=== PATIENT | female | born 1995 | race Two or more races ===

== ENCOUNTER 2024-04-30 05:37 | Inpatient (IN) | payer MEDICAID, OTHER ==
[~2024-04-30] VITALS: Ht 165.1 cm; Wt 63.5 kg
[2024-04-30] MEDS: HALOPERIDOL LACTATE 5 MG/ML INJ VIAL IM ONE (06:22)
[2024-04-30] MEDS: LORazepam 2MG/ML-1ML VIAL ONE (06:22)
[2024-04-30] MEDS: LORazepam 2MG/ML-1ML VIAL IM ONE (06:22)
[2024-04-30] MEDS: diphenhdrAMINE HCL 50 MG/1 ML VL IM ONE (06:22)
[2024-04-30] MEDS: HALOPERIDOL LACTATE 5 MG/ML INJ VIAL ONE (06:22)
[2024-04-30] MEDS: diphenhdrAMINE HCL 50 MG/1 ML VL ONE (06:22)
[2024-04-30 07:20] VITALS: PULSE 118; RESP 17; O2SAT 98
[2024-04-30] MEDS: SODIUM CHLORIDE 0.9% 1,000 ML IV ONE ×2 (07:35→10:11)
[2024-04-30 09:08] LABS: Urine Bacteria FEW /hpf (None Seen); Urine Blood Negative /uL (Negative); Urine Clarity Clear (Clear); Urine Color Colorless (Yellow); Urine Protein, UAD Negative (Negative); Urine Specific Gravity 1.004 (1.001-1.035); Urine Urobilinogen Normal (Negative); Urine WBC <1 /hpf (0 - 5)
[2024-04-30 09:12] LABS: Amphetamine Screen, Urine Neg (NEGATIVE); Barbiturate Scree,Urine Neg (NEGATIVE); Benzodiazephine Screen, Urine Neg (NEGATIVE); Cocaine Screen, Urine Neg (NEGATIVE)
[2024-04-30 09:13] LABS: Cannabinoid Screen, Urine Pos (NEGATIVE); Opiate Scree,Urine Neg (NEGATIVE); Phencyclidine Screen, Urine Neg (NEGATIVE)
[2024-04-30 09:49] LABS: Basophils # (auto) 0 10 ^3/uL (0-0.2); Basophils % (auto) 0.2 % (0.0-2.0); Eosinophils # (auto) 0.1 10 ^3/uL (0-0.8); Eosinophils % (auto) 1.5 % (0.0-7.0); Hematocrit 36.7 % (36.0-46.0); Hemoglobin 12.3 g/dL (12.2-16.2); Lymphocytes % (auto) 54.4 % (10.0-50.0); Mean Corpuscular Hemoglobin 32.4 pg (28.0-32.0); Mean Corpuscular Hgb Conc. 33.5 g/dL (32.0-36.0); Mean Corpuscular Volume 96.7 fL (80.0-100.0); Monocytes # (auto) 0.4 10 ^3/uL (0-1.3); Monocytes % (auto) 5.9 % (0.0-12.0); Neutrophils # (auto) 2.8 10 ^3/uL (1.6-8.6); Nucleated Red Blood Cells % 0.1 %; Platelet Count (auto) 248 10^3/uL (140-450); Red Blood Cells 3.79 10^6/uL (4.0-5.20); Red Cell Distribution Width 13.7 % (11.8-14.3); White Blood Cell 7.3 10^3/uL (4.4-10.8)
[2024-04-30 09:57] LABS: Anion Gap 8 (5-15); Carbon Dioxide 21 mmol/L (20-30); Chloride 116 mmol/L (98-107); Potassium 4.1 mmol/L (3.5-5.1); Sodium 145 mmol/L (136-145)
[2024-04-30 09:58] LABS: Calcium 7.8 mg/dL (8.7-10.4)
[2024-04-30 10:03] LABS: BUN/Creatinine Ratio 11.1 (10.0-20.0); Blood Urea Nitrogen 7 mg/dL (9-23); Glucose 98 mg/dL (74-106)
[2024-04-30 10:12] LABS: Blood Alcohol 290.9 mg/dL (<10)
[2024-04-30] MEDS ORDERED: ACETAMINOPHEN 325 MG TAB PO PRN (14:00)
[2024-04-30] MEDS ORDERED: HYDROcodone-ACET 5/325MG TAB PO PRN (14:00)
[2024-04-30] MEDS ORDERED: ONDANSETRON HCL 4 MG/2 ML VIAL IV PRN (14:00)
[2024-04-30] MEDS ORDERED: DOCUSATE SOD 100 MG CAP PO PRN (14:00)
[2024-04-30] MEDS: SODIUM CHLORIDE 0.9% 1,000 ML IV SCH (14:31)
[2024-04-30] MEDS ORDERED: MORPHINE SULFATE INJ 2 MG/ml SYRG IV PRN (15:00)
[2024-04-30] MEDS ORDERED: NITROGLYCERIN 0.4 MG SL TAB SL PRN (15:00)
[2024-04-30] MEDS ORDERED: LORazepam 2MG/ML-1ML VIAL IV PRN (16:15)
[2024-04-30] MEDS: CALCIUM GLUC 1,000mg/50ml-NS 50 ML IV ONE (16:48)
[2024-04-30] MEDS: FOLIC ACID 1 MG, MAGNESIUM SULF SDV 50% 8 MEQ, MULTIPLE VITAMIN 10 ML, THIAMINE INJ 100... INJ ONE (18:01)
[2024-04-30 19:30] VITALS: PULSE 82; RESP 17; O2SAT 97
[2024-04-30 19:55] VITALS: BP 106/67; PULSE 90; RESP 11; TEMP 97.7; O2SAT 97
[2024-05-01] MEDS ORDERED: THIAMINE 100mg/ml INJ (200mg/2ml VIAL) IV SCH (10:00)
[2024-05-01] MEDS ORDERED: MULTIPLE VITAMIN TAB PO SCH (10:00)
[2024-05-01] MEDS ORDERED: FOLIC ACID 1 MG in D5W 5% 50 ML INJ SCH (10:00)
== END 2024-05-01 19:55 | disposition left against medical advice (07) | DRG 816 ==
LOC: EDBD 05:37 → ER 05:56 → TELE 14:58
PROVIDERS: ADMIT Nurse Practitioner Family; ATTEND Nurse Practitioner Acute Care
DX: T51.91XA Toxic effect of unspecified alcohol, accidental (unintentional), initial encounter (principal); G92.8 Other toxic encephalopathy; E83.51 Hypocalcemia; R56.9 Unspecified convulsions; F10.129 Alcohol abuse with intoxication, unspecified; Z53.29 Procedure and treatment not carried out because of patient's decision for other reasons; Y90.8 Blood alcohol level of 240 mg/100 ml or more
CPT/HCPCS: 36415; 80048; 80307; 80320; 81001; 81025; 85025; G0378; J7060